=== PATIENT | female | born 1975 | race African-American/Black ===

== ENCOUNTER 2018-11-11 17:29 | Emergency (ER) | payer MEDICAID, OTHER ==
[~2018-11-11] VITALS: Ht 157.5 cm; Wt 52.0 kg
[2018-11-11] MEDS ORDERED: SODIUM CHLORIDE 0.9% 1,000 ML IV ONE ×2 (20:45→23:47)
[2018-11-11 21:18] LABS: CLARITY URINE CLEAR (CLEAR); COLOR URINE DARK YELLOW (YELLOW); KETONES URINE 1+ (NEGATIVE); LEUKOCYTE ESTERASE URINE 1+ (NEGATIVE); NITRITE URINE NEGATIVE (NEGATIVE); OCCULT BLOOD URINE TRACE (NEGATIVE); PH URINE 5.5 (4.5-8.0); PROTEIN URINE 1+ (NEGATIVE); SPECIFIC GRAVITY URINE 1.038 (1.005-1.030)
[2018-11-11 21:38] LABS: BASOPHILS % 0.4 % (0.0-2.0); CHLORIDE 102 mEq/L (98-107); EOSINOPHILS % 2.4 % (0.0-5.0); HEMATOCRIT. 33.2 % (36.0-48.0); HEMOGLOBIN. 11.1 g/dL (12.0-16.0); LYMPHOCYTES % 17.1 % (20.0-50.0); MEAN CORPUSCULAR VOLUME 78.1 fL (81.0-99.0); MEAN PLATELET VOLUME 7.6 fl (7.4-10.4); NEUTROPHILS % 67.1 % (40.0-76.0); PLATELET 380 x1000/uL (130-400); RED BLOOD CELL COUNT 4.25 mill/uL (4.2-5.4); RED CELL DISTRIBUTION WIDTH 16.1 % (11.6-14.6)
[2018-11-11] MEDS ORDERED: PROCHLORPERAZINE 10MG/2ML VIAL IV PRN (22:00)
[2018-11-11] MEDS ORDERED: KETOROLAC 15MG/ML VIAL IV ONE (22:00)
[2018-11-11] MEDS ORDERED: HYDROCODONE/ACETAMINOPHEN 5/325MG TABLET PO ONE (23:00)
[2018-11-12 01:46] VITALS: BP 100/55
== END 2018-11-12 01:53 | disposition home or self-care (01) ==
LOC: ER 17:29
DX: R59.1 Generalized enlarged lymph nodes (principal); R51 Headache; F17.200 Nicotine dependence, unspecified, uncomplicated
CPT/HCPCS: 36415; 71045; 80053; 81003; 81025; 85025; 87804; 96361; 96374; 96375; 99284; J1885; J7030